=== PATIENT | male | born 1970 | race Two or more races ===

== ENCOUNTER 2018-11-23 11:00 | Emergency (ER) | payer OTHER ==
[~2018-11-23] VITALS: Ht 170.2 cm; Wt 78.0 kg
[2018-11-23 11:16] VITALS: BP 137/83
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
[2018-11-23] MEDS ORDERED: Ketorolac 60mg Inj IM ONE (11:30)
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
[2018-11-23] MEDS ORDERED: IBUPROFEN800 MG ORAL (12:26)
[2018-11-23] MEDS ORDERED: CYCLOBENZAPRINE10 MG ORAL (12:26)
[2018-11-23 12:40] VITALS: BP 137/83
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
== END 2018-11-23 12:40 | disposition home or self-care (01) ==
LOC: EMR 12:25
DX: S13.4XXA Sprain of ligaments of cervical spine, initial encounter (principal); V49.40XA Driver injured in collision with unspecified motor vehicles in traffic accident, initial encounter; Y92.410 Unspecified street and highway as the place of occurrence of the external cause
CPT/HCPCS: 96372; 99283